=== PATIENT | female | born 1930 | race Caucasian/White ===

== ENCOUNTER 2019-11-06 09:49 | Day surgery (SDC) | payer MEDICARE ==
[2019-11-05 15:57] VITALS: BMI 32.4
[2019-11-06 11:48] LABS: Anion Gap 9 mmol/L (10-20); BUN (Urea Nitrogen) 20 mg/dL (9.8-20.1); Calc. Creatinine Clearance 53 mL/min (70-130); Calcium 8.9 mg/dL (7.8-10.44); Carbon Dioxide 29 mmol/L (23-31); Chloride 106 mmol/L (98-107); Estimated GFR-MDRD 54; Glucose 105 mg/dL (83-110); Potassium 4.4 mmol/L (3.5-5.1); Sodium 140 mmol/L (136-145)
[2019-11-06] MEDS ORDERED: Bacitracin Zinc Ointment 30 gm TUBE ONE (11:52)
[2019-11-06] MEDS ORDERED: Lidocaine 1% w/Epinephrine 1:100K 20 ML VIAL ONE (11:52)
[2019-11-06] MEDS ORDERED: Bupivacaine 0.25% HCL 30 ML VIAL ONE (11:52)
[2019-11-06 11:53] LABS: #Eosinphils 0.1 thou/uL (0.0-0.7); #Lymphocytes 1.1 thou/uL (1.20-3.40); #Monocytes 0.3 thou/uL (0.11-0.59); #Neutrophils 1.3 thou/uL (1.40-6.50); %Basophils 0.4 % (0.0-1.0); %Eosinophils 3.6 % (0.0-10.0); %Lymphocytes 37.6 % (21.0-51.0); %Monocytes 10.5 % (0.0-10.0); %Neutrophils 47.8 % (42.0-75.0); Hemoglobin 10.7 g/dL (12.0-16.0); Mean Corpuscular HGB CONC 33.9 g/dL (32.0-36.0); Mean Corpuscular Hemoglobin 31.3 pg (27.0-31.0); Mean Corpuscular Volume 92.3 fL (78.0-98.0); Platelet Count 114 thou/uL (130-400); RBC Distribution Width 12.4 % (11.5-14.5); Red Blood Cell (RBC) Count 3.43 mill/uL (4.20-5.40); White Blood Cell (WBC) Count 2.8 thou/uL (4.8-10.8)
[2019-11-06] MEDS ORDERED: Naloxone HCl 0.4 mg/ml Vial IVP PRN ×2 (11:54)
[2019-11-06] MEDS ORDERED: Lactated Ringer's 500 ML IV PRN (11:54)
[2019-11-06] MEDS ORDERED: diphenhydrAMINE 50 MG/ML VIAL IVP PRN (11:54)
[2019-11-06] MEDS ORDERED: ePHEDrine/0.9% NaCl/PF SYRINGE 50 mg/10 ml SLOW IVP PRN (11:54)
[2019-11-06] MEDS ORDERED: Acetaminophen 325 MG TAB PO PRN (11:54)
[2019-11-06] MEDS ORDERED: Ondansetron PF 4 MG/2 ML Vial IVP PRN (11:54)
[2019-11-06] MEDS ORDERED: Promethazine HCl 25 MG/ML VIAL IM PRN (11:54)
[2019-11-06] MEDS ORDERED: Bupivacaine 0.25% 10 ML VIAL EPIDURAL SCH (11:55)
[2019-11-06] MEDS ORDERED: EPINEPHrine 1 MG/ML AMP ONE (11:55)
[2019-11-06] MEDS ORDERED: Fentanyl 100 MCG/2 ML VIAL I-THECAL ONE (11:55)
[2019-11-06] MEDS ORDERED: Fentanyl 100 MCG/2 ML VIAL ONE (11:56)
[2019-11-06] MEDS ORDERED: Lidocaine 2% Jelly 5 ML TUBE ONE (11:56)
[2019-11-06] MEDS ORDERED: Fentanyl 4 mcg/Bupivacaine 0.1% Cassette 100 ML EPIDURAL SCH (12:00)
[2019-11-06] MEDS ORDERED: Communication Order-Pharmacy FS SCH (12:00)
[2019-11-06] MEDS ORDERED: Lidocaine 1% PF 5 ML VIAL ONE (12:30)
[2019-11-06] MEDS ORDERED: Glycopyrrolate 0.2 MG/ML 5 ML SYRINGE ONE (12:30)
[2019-11-06] MEDS ORDERED: ePHEDrine/0.9% NaCl/PF SYRINGE 50 mg/10 ml ONE (12:30)
[2019-11-06] MEDS ORDERED: Rocuronium Bromide 10 MG/ML (10ML VIAL) ONE (12:30)
[2019-11-06] MEDS ORDERED: Dexamethasone 20 MG/5 ML VIAL ONE (12:30)
[2019-11-06] MEDS ORDERED: PROPOFOL 200 MG/20 ML VIAL ONE (12:30)
--- NOTE | 2019-11-09 11:17 | OP ---
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 PROCEDURE: 1. Wide excision of squamous cell carcinoma of the left superior medial upper back (5.2 cm including adequate margins). 2. Intermediate closure of left medial superior upper back ( 8 cm) ([id number]). PROCEDURE: Following induction of adequate anesthesia, patient was prepped and draped in usual sterile fashion in the right lateral position. The patient had a recurrent squamous cell carcinoma of her upper back. The entire prior surgical site was widely excised including adequate margins. Frozen section analysis came back as margins clear. The defect was closed in layers using interrupted and running 3-0 Monocryl suture with dog ears being taken out medially and laterally. The patient tolerated the procedure well. All hemostasis was meticulously achieved and wounds were irrigated prior to closure. Job ID: [id number]
== END 2019-11-06 16:16 | disposition home or self-care (01) ==
LOC: SDC 09:49
PROVIDERS: ATTEND Plastic Surgery
PROC: 0HB6XZZ Excision of Back Skin, External Approach (ICD-10-PCS; principal; 2019-11-06)
DX: C44.529 Squamous cell carcinoma of skin of other part of trunk (principal); L90.5 Scar conditions and fibrosis of skin; I10 Essential (primary) hypertension; E78.5 Hyperlipidemia, unspecified; Z79.01 Long term (current) use of anticoagulants; Z79.2 Long term (current) use of antibiotics; Z79.899 Other long term (current) drug therapy; Z95.0 Presence of cardiac pacemaker
CPT/HCPCS: 36415; 80048; 85025; 88305; 88331; 88332; 93005; 93010; J0131; J0171; J0690; J1100; J2001; J2704; J3010; S0020